=== PATIENT | male | born 1955 | race Caucasian/White ===

== ENCOUNTER → 2018-01-04 | Outpatient (CLI) | payer OTHER ==
[2018-01-04 10:02] LABS: ALBUMIN 3.9 g/dL (3.4-5.0); CALCIUM 9.2 mg/dL (8.5-10.1); CHOLESTEROL/HDL RATIO 2.4; GFR 75.2; TOTAL BILIRUBIN 0.9 mg/dL (0.2-1.0)
[2018-01-04 10:05] LABS: BASO % 1 % (0-3); EOS # 0.1 x10^3/uL (0.0-0.7); EOS % 1 % (0-3); HEMATOCRIT 48.7 % (39.0-53.0); LYMPH # 1.1 x10^3/uL (1.0-4.8); LYMPH % 14 % (24-48); MEAN CORPUSCULAR HEMOGLOBIN 31 pg (25-35); MEAN CORPUSCULAR HGB CONC 35 g/dL (31-37); MEAN CORPUSCULAR VOLUME 90 fL (79-100); MONO # 0.8 x10^3/uL (0.0-1.1); MONO % 11 % (0-9); NEUT # 5.6 x10^3uL (1.8-7.7); NEUT % 74 % (31-73); PLATELET COUNT 218 x10^3/uL (140-400); RED BLOOD COUNT 5.42 x10^6/uL (4.30-5.70); RED CELL DISTRIBUTION WIDTH 13.2 % (11.5-14.5); WHITE BLOOD COUNT 7.5 x10^3/uL (4.0-11.0)
== END | disposition home or self-care (01) ==
LOC: LAB 09:30
PROVIDERS: ATTEND Family Medicine
DX: Z12.5 Encounter for screening for malignant neoplasm of prostate (principal); E78.5 Hyperlipidemia, unspecified
CPT/HCPCS: 36415; 80053; 80061; 85025; G0103

== ENCOUNTER → 2018-12-03 | Outpatient (CLI) | payer OTHER ==
[2018-12-03 16:26] LABS: BASO # 0.1 x10^3/uL (0.0-0.2); BASO % 1 % (0-3); EOS # 0.1 x10^3/uL (0.0-0.7); EOS % 1 % (0-3); HEMATOCRIT 49.5 % (39.0-53.0); HEMOGLOBIN 16.8 g/dL (13.0-17.5); LYMPH % 23 % (24-48); MEAN CORPUSCULAR HEMOGLOBIN 30 pg (25-35); MEAN CORPUSCULAR HGB CONC 34 g/dL (31-37); MEAN CORPUSCULAR VOLUME 90 fL (79-100); MONO # 0.6 x10^3/uL (0.0-1.1); MONO % 7 % (0-9); NEUT % 68 % (31-73); PLATELET COUNT 238 x10^3/uL (140-400); RED BLOOD COUNT 5.51 x10^6/uL (4.30-5.70); RED CELL DISTRIBUTION WIDTH 13.3 % (11.5-14.5); WHITE BLOOD COUNT 8.8 x10^3/uL (4.0-11.0)
[2018-12-03 16:51] LABS: CALCIUM 9.5 mg/dL (8.5-10.1); POTASSIUM 4.4 mmol/L (3.5-5.1); TOTAL BILIRUBIN 0.8 mg/dL (0.2-1.0); TOTAL PROTEIN 7.9 g/dL (6.4-8.2)
[2018-12-03 16:52] LABS: CHOLESTEROL/HDL RATIO 3.2
== END | disposition home or self-care (01) ==
LOC: LAB 16:06
PROVIDERS: ATTEND Family Medicine
DX: Z12.5 Encounter for screening for malignant neoplasm of prostate (principal); I10 Essential (primary) hypertension; E78.5 Hyperlipidemia, unspecified
CPT/HCPCS: 36415; 80053; 80061; 85025; G0103

== ENCOUNTER → 2018-12-06 | Outpatient (CLI) | payer OTHER ==
[~2018-12-06] MED LIST: CONTRAST GIVEN. MC PRN; IOHEXOL 240 MG/ML 50ML VIAL. PO ONE; IOHEXOL 300 MG/ML 100ML VIAL. IV ONE
--- NOTE | 2018-12-06 12:03 | RAD ---
EXAM: Abdomen and pelvis CT with intravenous contrast. HISTORY: Left inguinal mass. TECHNIQUE: Computed tomographic images of the abdomen and pelvis were obtained following the administration of 75 cc Omnipaque 300 intravenous contrast. Multiplanar reformatting was performed. *One or more of the following individualized dose reduction techniques were utilized for this examination: 1. Automated exposure control. 2. Adjustment of the mA and/or kV according to patient size. 3. Use of iterative reconstruction technique. COMPARISON: None. FINDINGS: Evaluation of the lower thorax demonstrates posterior dependent atelectasis. There is no infiltrate or pleural effusion. No hepatic lesion is seen. The gallbladder, pancreas, spleen and adrenal glands are unremarkable. There is a tiny proximal duodenal diverticulum. There is mild right renal cortical lobulation, developmental or due to scarring. There is a 3 mm nonobstructing right renal stone. There is mild deformation of the bladder base due to a mildly enlarged prostate. There is no appendicitis. There is no bowel obstruction. There is a moderate left inguinal hernia containing fat and a segment of the proximal sigmoid colon. There is no evidence of bowel incarceration or mechanical obstruction. There is no lymphadenopathy. There is no suspicious osseous lesion. IMPRESSION: 1. Moderate left inguinal hernia containing fat and a segment of colon. 2. Right nephrolithiasis. Electronically signed by: Carmelina Nova MD (12/06/2018 12:00 PM) [facility]
== END | disposition home or self-care (01) ==
LOC: CT 09:24
PROVIDERS: ATTEND Family Medicine
DX: K40.90 Unilateral inguinal hernia, without obstruction or gangrene, not specified as recurrent (principal); N20.0 Calculus of kidney; K57.10 Diverticulosis of small intestine without perforation or abscess without bleeding; N40.0 Benign prostatic hyperplasia without lower urinary tract symptoms; J98.11 Atelectasis; I10 Essential (primary) hypertension
CPT/HCPCS: 74177; Q9966; Q9967

== ENCOUNTER 2019-01-14 06:09 | Day surgery (SDC) | payer OTHER ==
[~2019-01-14] VITALS: Ht 170.2 cm; Wt 96.0 kg
[~2019-01-14 06:09] MED LIST changes: +BACITRACIN 50,000 UNIT in IV NORMAL SALINE 500ML BAG 500 ML IRR ONE; -CONTRAST GIVEN. MC PRN; +FLUT9.9S NS; -IOHEXOL 240 MG/ML 50ML VIAL. PO ONE; -IOHEXOL 300 MG/ML 100ML VIAL. IV ONE; +LOSA-73 PO; +SIMV40TA18 PO
[2019-01-14] MEDS ORDERED: BUPIVACAINE-EPI 0.25%-1:200000 MPF 30 ML VIAL. INJ ONE (06:30)
[2019-01-14] MEDS ORDERED: fentaNYL PF VIAL 100 MCG/2 ML VIAL IV PRN (07:00)
[2019-01-14] MEDS ORDERED: HYDROmorphone 2 MG/ML VIAL IV PRN (07:00)
[2019-01-14] MEDS ORDERED: IV RINGERS,LACTATED 1000ML 1,000 ML IV SCH (07:00)
[2019-01-14] MEDS ORDERED: LIDOCAINE 1% PF 2 ML VIAL. ID PRN (07:00)
[2019-01-14] MEDS ORDERED: PROCHLORPERAZINE 10 MG/2 ML VIAL. IV PRN (07:00)
[2019-01-14] MEDS ORDERED: MORPHINE SULFATE 2 MG/ML VIAL. IV PRN (07:00)
[2019-01-14] MEDS ORDERED: ONDANSETRON PF 4 MG/2 ML VIAL. IV PRN (07:00)
[2019-01-14] MEDS ORDERED: SCOPOLAMINE 1.5MG PATCH. TD ONE (07:15)
[2019-01-14] MEDS ORDERED: MIDAZOLAM HCL/PF 2 MG/2 ML VIAL. ONE (07:19)
[2019-01-14] MEDS ORDERED: fentaNYL PF VIAL 250 MCG/5 ML VIAL ONE (07:20)
[2019-01-14] MEDS ORDERED: ROCURONIUM 50 MG/5 ML VIAL. ONE (07:20)
[2019-01-14] MEDS ORDERED: ONDANSETRON PF 4 MG/2 ML VIAL. ONE (08:07)
[2019-01-14] MEDS ORDERED: DEXAMETHASONE SOD PHOS 20 MG/5 ML VIAL. ONE (08:07)
[2019-01-14] MEDS ORDERED: PROPOFOL 20 ML IV ONE (08:08)
[2019-01-14] MEDS ORDERED: LIDOCAINE 2% PF 5 ML VIAL. ONE (08:08)
[2019-01-14] MEDS ORDERED: NEOSTIGMINE METHYLSULFATE 5 MG/5 ML SYRINGE. ONE (08:57)
[2019-01-14] MEDS ORDERED: GLYCOPYRROLATE 1 MG/5 ML VIAL. ONE (08:58)
--- NOTE | 2019-01-14 09:07 | DISCH ---
DISCHARGE INSTRUCTIONS Condition on Discharge Condition on Discharge: Stable Activity After Discharge Activity Instructions for Disc: Other, see below (no lifting over 20 lbs X 4 weeks) Diet after Discharge Diet after Discharge: Regular Wound Incision Care Wound/Incision Care: Other, see below (keep dressing clean and dry X 72 hours, may then remove and shower) Follow-Up Follow up with: Dr Luis in office in 2 weeks, call for appt [phone] ELISABETH LUIS MD Jan 14, 2019 09:07
[2019-01-14] MEDS ORDERED: OXYC1TAB15 PO ×2 (09:09→09:30)
[2019-01-14] MEDS ORDERED: SEVOFLURANE 61 TO 120 MINUTES. IH ONE (09:15)
--- NOTE | 2019-01-14 09:20 | PDOC4 ---
Operative Note Operative Note Operative Note: Preoperative Diagnosis: Left inguinal hernia Postoperative Diagnosis: Same Procedure: Left inguinal hernia repair with mesh Surgeon: Lencho Safety Inspector: Miroslava KAPLAN Anesthesia: Gen. EBL: 10 mL Specimen: Left cord lipoma, hernia sac to pathology Drains: None Complications: None Indication: The patient is a 63-year-old gentleman who is referred with a moderate to large left inguinal hernia. He is interested in operative repair. The risks of surgery were discussed which include bleeding, infection, recurrence, pain, numbness, urinary retention, anesthetic risk, potential need for additional surgery or procedure. He understands and would like to proceed. Description: The patient was taken to the operating room and placed supine on the operating table. Gen. anesthesia was performed. Left groin was shaved and prepped with ChloraPrep and draped in a standard surgical manner. An incision was made in the skin lines of the left groin with a scalpel. Cautery dissection was carried down to the external oblique aponeurosis. The aponeurosis was opened down to the external ring. The patient had a significant protrusion of the hernia extending into the scrotum with contents that would not readily reduce. We were able to gradually free up some of the sac attachments and mobilized the large redundant sac from the surrounding tissues. The vas deferens and other cord structures were identified and preserved. There was a moderate to large cord lipoma which was excised and sent to pathology. A Brittanie drain was used to encircle the cord structures. The large indirect hernia sac was fully freed from the surrounding tissues. Given its redundancy I did elect to resect most of it and the neck was oversewn with 2-0 Vicryl. The excised portion was sent as a specimen to pathology. The sac stump was inverted and the defect filled with an extra large Phasix mesh plug. The plug was sutured around its periphery with 2-0 Vicryl. The inguinal floor was then reinforced with a keyhole Prolene mesh patch which was also sutured into position with interrupted 2-0 Vicryl. Upon completion the mesh rested well providing full coverage of the inguinal floor and the plug was intact deep to it. He was closed over the mesh with 2-0 Vicryl. The subcutaneous tissue was closed with 3-0 Vicryl. The skin was closed with 4-0 Monocryl. The incision was infiltrated with half percent Marcaine. Steri-Strips and a sterile dressing were applied. The patient tolerated the procedure well and was sent to the recovery room in stable condition. At the end of the case all counts were correct. ELISABETH LUIS MD Jan 14, 2019 09:19
[2019-01-14] MEDS: fentaNYL PF VIAL 100 MCG/2 ML VIAL IV PRN ×2 (09:27→09:38)
[2019-01-14] MEDS ORDERED: oxyCODONE/APAP 5/325 1 TAB TABLET PO ONE ×2 (09:30)
[2019-01-14] MEDS ORDERED: ceFAZolin 2GM PREMIX 2 GM/50 ML BAG IV ONE (10:00)
[2019-01-14 10:40] VITALS: BP 156/88
--- NOTE | 2019-01-16 22:06 | PATHOLOGY ---
[facility] Accession Number: [id number] . 01 Material submitted: . PART A: inguinal area - CORD LIPOMA PART B: inguinal area - LEFT INGUINAL SAC. Modifiers: left . 01 Clinical history: . Inguinal hernia . 02 Diagnosis: A. "Cord lipoma", excision: - Mature adipose tissue consistent with lipoma. . B. "Left inguinal sac", hernia repair: - Vascularized fibroadipose connective tissue with mesothelial lining consistent with hernia sac showing reactive mesothelial hyperplasia. . (CLW:tio; 01/16/2019) MBR 01/16/2019 1042 Local . 02 Electronically signed: . Hortensia Blanton MD, Pathologist NPI- [id number] . 01 Gross description: . A. Received in formalin labeled "Erick Winn, cord lipoma," is an irregular segment of partially encapsulated, yellow-brown adipose tissue with scant attached alvarado-savlador fibromembranous tissue measuring 6.9 x 4.7 x 1.5 cm in greatest dimensions. Serial sectioning reveals yellow-brown, partially hemorrhagic cut surfaces. [employer] Grade [employer] sections are submitted in cassettes A1 and A2. . B. Received in formalin labeled "Erick Winn, left inguinal sac," is a wrinkled segment of dusky alvarado-salvador to hemorrhagic fibromembranous tissue with scant attached yellow-brown adipose tissue measuring 6.1 x 2.0 x 0.8 cm in greatest dimensions. Serial sectioning reveals an interior sac displaying a wrinkled, alvarado-salvador lining, with no lesions or nodules noted grossly. 4Th Grade Teacher sections are submitted in cassette B1. (DAC; 01/15/2019) XDC/XDC 01/15/2019 0754 Local . 02 Pathologist provided ICD-10: D17.9, K44.9 . 02 CPT . 814952, 056182 Specimen Comment: A courtesy copy of this report has been sent to [phone] Specimen Comment: [id number] Specimen Comment: Report sent to / DR CHEATHAM Performed at: 01 [facility] [address] [facility] [facility] [address], [place] [id number] MD Ward Alfred MD Phone: [phone] Performed at: 02 [facility] [address] [place], [place] [id number] MD Vivek Byers MD Phone: [phone]
== END 2019-01-14 11:55 | disposition home or self-care (01) ==
LOC: SURG 06:09
PROVIDERS: ATTEND Surgery
DX: K40.90 Unilateral inguinal hernia, without obstruction or gangrene, not specified as recurrent (principal); D17.6 Benign lipomatous neoplasm of spermatic cord; G47.30 Sleep apnea, unspecified; I10 Essential (primary) hypertension; E78.00 Pure hypercholesterolemia, unspecified; E66.9 Obesity, unspecified; Z68.33 Body mass index [BMI] 33.0-33.9, adult; Z87.442 Personal history of urinary calculi; Z98.890 Other specified postprocedural states; Z85.828 Personal history of other malignant neoplasm of skin; Z72.89 Other problems related to lifestyle
CPT/HCPCS: 49505; 88302; 88304; A7015; C1781; J0696; J1100; J2001; J2250; J2405; J2704; J2710; J3010; J3490; J7040; J7120

== ENCOUNTER 2019-12-27 07:56 | Emergency (ER) | payer OTHER ==
[~2019-12-27] VITALS: Ht 172.7 cm; Wt 93.1 kg
[~2019-12-27 07:56] MED LIST changes: -BACITRACIN 50,000 UNIT in IV NORMAL SALINE 500ML BAG 500 ML IRR ONE; +OXYC1TAB15 PO
[2019-12-27 08:37] LABS: BILIRUBIN,URINE NEGATIVE (NEG); CLARITY,URINE CLEAR; COLOR,URINE YELLOW; NITRITE,URINE NEGATIVE (NEG); PH,URINE 5.5 (<5.0-8.0); PROTEIN,URINE NEGATIVE (NEG-TRACE); UROBILINOGEN,URINE 0.2 mg/dL (0.2 mg/dL)
--- NOTE | 2019-12-27 08:43 | PHYS DOC ---
Past Medical History Past Medical History: High Cholesterol, Hypertension, Kidney Stone, Other Additional Past Medical Histor: Inguinal Hernia Past Surgical History: Other Additional Past Surgical Histo: Left Inguinal Hernia Repair Smoking Status: Never Smoker Alcohol Use: None General Adult EDM: Chief Complaint: GROIN PAIN HPI: HPI: Patient is a 64-year-old male with past medical history of hypertension who presents to the emergency room complaining of severe right lower quadrant abdominal pain that started suddenly while eating breakfast at 615 this morning. He states that he did not have any pain when he first woke up this morning. He has had pain like this previously and states that it was a kidney stone in the past. He has not had his appendix out. He had some mild nausea which is now passed. He is unsure whether or not he has had any blood in his urine. He denies any recent illnesses. Review of Systems: Review of Systems: General: Denies fever, chills, sweats, fatigue Eyes: Denies drainage, blurred vision, eye redness HENT: Denies rhinorrhea, sore throat, earache Respiratory: Denies cough, shortness of breath, wheezing Cardiac: Denies edema, palpitations, chest pain GI: Reports nausea, abdominal pain. Denies diarrhea, constipation, vomiting MSK: Denies neck pain, back pain Skin: Denies rash, jaundice Neuro: Denies headache, dizziness Psychiatric: Denies SI/HI Heart Score: Risk Factors: Risk Factors: DM, Current or recent (<one month) smoker, HTN, HLP, family hist ory of CAD, obesity. Risk Scores: Score 0 - 3: 2.5% MACE over next 6 weeks - Discharge Home Score 4 - 6: 20.3% MACE over next 6 weeks - Admit for Clinical Observation Score 7 - 10: 72.7% MACE over next 6 weeks - Early Invasive Strategies Current Medications: Current Medications Medications (Trade) Dose Ordered Sig/Jo Ann Start Time Stop Time Status Last Admin Dose Admin Morphine Sulfate (Morphine Sulfate) 5 mg 1X ONCE 12/27/19 08:30 12/27/19 08:31 UNV Ondansetron HCl (Zofran) 4 mg 1X ONCE 12/27/19 08:30 12/27/19 08:31 UNV Sodium Chloride 1,000 ml @ 1,000 mls/hr 1X ONCE 12/27/19 08:30 12/27/19 09:29 UNV Allergies: Allergies: Allergies Coded Allergies Type Severity Reaction Last Updated Verified No Known Drug Allergies 01/14/19 No Physical Exam: PE: General: Awake, alert, NA mild distress. Well Nourished, well hydrated. Cooperative HEENT: Atraumatic, EOMI, PERRL, airway patent, moist oral mucosa Neck: Supple, trachea midline Respiratory: CTA bilaterally, normal effort, no wheezing/crackles CV: RRR, no murmur, cap refill <2 GI: Soft, right lower quadrant tenderness, rebound, guarding MSK: No obvious deformities Skin: Warm, dry, intact Neuro: A&O x3, speech NL, sensory and motor grossly intact, no focal deficits Psych: Normal affect, normal mood, not suicidal or homicidal Current Patient Data: Vital Signs: Vital Signs Date Time Temp Pulse Resp B/P (MAP) Pulse Ox O2 Delivery O2 Flow Rate FiO2 12/27/19 08:01 98.3 80 18 169/80 (109) 99 Room Air 98.3 EKG: EKG: [] Radiology/Procedures: Radiology/Procedures: [] Course & Med Decision Making: Course & Med Decision Making Pertinent Labs and Imaging studies reviewed. (See chart for details) Patient is a 64 year-old male with a history of hypertension who presents to the Emergency Room complaining of abdominal pain with nausea. On exam, patient is right lower quadrant tenderness with rebound and guarding. Due to patients history, age, and exam work up will need to be done to evaluate for intra- abdominal pathology. Work up ordered includes CBC, CMP, lipase, UA, CT abdomen and pelvis. Patient's pain does not epigastric and a cardiac evaluation does not be needed for atypical pain. Ddx includes kidney stone, appendicitis, colitis, gastroenteritis, pyelonephritis. Work up was reviewed and showed patient has a kidney stone. He is feeling much better at this time. Will refer him to outpatient urology. Patient's test results and vitals while in the ED were fully reviewed and discussed with the patient. Patient is stable and at this time does not need admission to the hospital. We have discussed strict return precautions and the importance of following up with their Primary Care Physician. Patient stated understanding and was given an opportunity to ask any questions. Patient is in agreement with plan. Nena Disclaimer: Nena Disclaimer: This electronic medical record was generated, in whole or in part, using a voice recognition dictation system. Departure Departure Impression: Primary Impression: Kidney stone Disposition: 01 DC HOME SELF CARE/HOMELESS Condition: STABLE Referrals: Figueroa CHEATHAM MD (PCP) Patient Instructions: Kidney Stones Additional Instructions: [facility] Ondansetron Hcl (ZOFRAN) 4 Mg Tablet 1 TAB PO PRN Q6-8HRS for nausea, #12 TAB Prov: NENO CARPENTER MD 12/27/19 Oxycodone/Apap 5-325 (PERCOCET 5-325 MG TABLET ) 1 Each Tablet 1 TAB PO PRN Q6HRS PRN for PAIN, #10 TAB 0 Refills Prov: NENO CARPENTER MD 12/27/19 NENO CARPENTER MD Dec 27, 2019 08:43
[2019-12-27 08:50] LABS: BASO # 0.1 x10^3/uL (0.0-0.2); BASO % 1 % (0-3); EOS # 0.1 x10^3/uL (0.0-0.7); EOS % 1 % (0-3); HEMATOCRIT 47.2 % (39.0-53.0); HEMOGLOBIN 16.4 g/dL (13.0-17.5); LYMPH # 1.3 x10^3/uL (1.0-4.8); LYMPH % 14 % (24-48); MEAN CORPUSCULAR HEMOGLOBIN 31 pg (25-35); MEAN CORPUSCULAR HGB CONC 35 g/dL (31-37); MEAN CORPUSCULAR VOLUME 88 fL (79-100); MONO # 0.6 x10^3/uL (0.0-1.1); MONO % 7 % (0-9); NEUT # 7.4 x10^3/uL (1.8-7.7); NEUT % 78 % (31-73); PLATELET COUNT 232 x10^3/uL (140-400); RED BLOOD COUNT 5.35 x10^6/uL (4.30-5.70); RED CELL DISTRIBUTION WIDTH 13.1 % (11.5-14.5); WHITE BLOOD COUNT 9.5 x10^3/uL (4.0-11.0)
[2019-12-27 08:52] LABS: CREATININE 1.2 mg/dL (0.7-1.3); GFR 60.6; POTASSIUM 3.9 mmol/L (3.5-5.1)
[2019-12-27 08:53] LABS: BACTERIA,URINE FEW /HPF (0-FEW); WBC,URINE OCC /HPF (0-4)
[2019-12-27 08:57] LABS: ALBUMIN 3.7 g/dL (3.4-5.0); TOTAL BILIRUBIN 0.7 mg/dL (0.2-1.0); TOTAL PROTEIN 7.4 g/dL (6.4-8.2)
[2019-12-27] MEDS ORDERED: IV NORMAL SALINE 1000ML BAG 1,000 ML IV ONE ×2 (09:00→11:15)
[2019-12-27] MEDS ORDERED: ONDANSETRON PF 4 MG/2 ML VIAL. IVP ONE (09:00)
[2019-12-27] MEDS ORDERED: MORPHINE SULFATE 10 MG/ML VIAL. IV ONE ×2 (09:00→10:00)
[2019-12-27] MEDS ORDERED: IOHEXOL 300 MG/ML 100ML VIAL. IV ONE (09:15)
[2019-12-27] MEDS ORDERED: IOHEXOL 240 MG/ML 50ML VIAL. PO ONE (09:15)
[2019-12-27] MEDS ORDERED: CONTRAST GIVEN. MC PRN (09:30)
--- NOTE | 2019-12-27 10:26 | RAD ---
EXAM: CT Abdomen and Pelvis without IV contrast INDICATION: Reason: RLQ abd pain / Spl. Instructions: OMNI 300 INJ 75 MLS, PO OMNI 240 30 MLS / History: TECHNIQUE: Multi-detector row CT images were acquired from the lung bases through the abdomen and pelvis without the use of IV contrast. Sagittal and coronal images were acquired from the transaxial data. All CT scans performed at this facility utilize dose optimization techniques as appropriate to the exam, including the following: Automated exposure control and adjustment of the mA and/or KV according to patient size (this includes techniques or standardized protocols for targeted exams where dose is indication/reason for exam). ORAL CONTRAST: Administered COMPARISON: Contrast-enhanced abdomen pelvis CT of 12/06/2018. FINDINGS: The absence of IV contrast limits evaluation of soft tissue pathology. LOWER CHEST: Unremarkable LIVER: Unremarkable BILIARY SYSTEM: Gallbladder contains layering densities near the neck compatible with small gallstones or sludge.. Bile ducts are not dilated. PANCREAS: Unremarkable SPLEEN: Unremarkable ADRENALS: Unremarkable KIDNEYS & URETERS: Distal right ureteral 4.6 mm stone (image 78 of series 2) is associated with mild right hydroureter, hydronephrosis and a delayed right nephrogram with mild right perirenal soft tissue stranding. BLADDER: Unremarkable REPRODUCTIVE ORGANS: Mild prostatic enlargement measuring 6.4 cm transverse diameter. GASTROINTESTINAL: The stomach is mildly distended with oral contrast and gas. The small bowel and colon are unremarkable. The appendix is normal. MESENTERY/PERITONEUM/RETROPERITONEUM: Tubular soft tissue density at the left inguinal canal is suggestive of previous hernia repair. Otherwise unremarkable. VASCULAR: Unremarkable LYMPH NODES: No adenopathy OSSEOUS & SOFT TISSUES: Unremarkable IMPRESSION: Distal right ureteral obstruction from a 4.6 mm stone. Electronically signed by: Frances Ferreira MD (12/27/2019 10:23 AM) [id number]
[2019-12-27] MEDS ORDERED: KETOROLAC 30 MG/ML VIAL. ONE (10:42)
[2019-12-27] MEDS ORDERED: KETOROLAC 30 MG/ML VIAL. IVP ONE (10:45)
[2019-12-27] MEDS ORDERED: oxyCODONE/APAP 5/325 1 TAB TABLET PO ONE (13:15)
[2019-12-27] MEDS ORDERED: OXYC1TAB15 PO (13:58)
[2019-12-27] MEDS ORDERED: ONDA4TAB7 PO (13:58)
[2019-12-27 14:07] VITALS: BP 129/65
== END 2019-12-27 14:45 | disposition home or self-care (01) ==
LOC: ER 07:56
DX: N20.0 Calculus of kidney (principal); R10.31 Right lower quadrant pain; R11.0 Nausea; R31.9 Hematuria, unspecified; I10 Essential (primary) hypertension; E78.00 Pure hypercholesterolemia, unspecified; Z98.890 Other specified postprocedural states
CPT/HCPCS: 36415; 74177; 80053; 81001; 83690; 85025; 96361; 96374; 96375; 96376; 99285; J1885; J2270; J2405; J7030; Q9966; Q9967

== ENCOUNTER → 2020-01-02 | Outpatient (CLI) | payer OTHER ==
[2019-12-27 14:07] VITALS: BP 129/65
[~2020-01-02] MED LIST changes: +ONDA4TAB7 PO
[2020-01-02 07:25] LABS: BASO % 1 % (0-3); EOS # 0.2 x10^3/uL (0.0-0.7); EOS % 3 % (0-3); HEMATOCRIT 46.5 % (39.0-53.0); HEMOGLOBIN 16.1 g/dL (13.0-17.5); LYMPH # 1.4 x10^3/uL (1.0-4.8); LYMPH % 23 % (24-48); MEAN CORPUSCULAR HEMOGLOBIN 31 pg (25-35); MEAN CORPUSCULAR HGB CONC 35 g/dL (31-37); MEAN CORPUSCULAR VOLUME 89 fL (79-100); MONO # 0.6 x10^3/uL (0.0-1.1); MONO % 10 % (0-9); NEUT # 3.9 x10^3/uL (1.8-7.7); NEUT % 64 % (31-73); PLATELET COUNT 225 x10^3/uL (140-400); RED BLOOD COUNT 5.25 x10^6/uL (4.30-5.70); RED CELL DISTRIBUTION WIDTH 13.1 % (11.5-14.5); WHITE BLOOD COUNT 6.1 x10^3/uL (4.0-11.0)
[2020-01-02 07:37] LABS: ALBUMIN 3.5 g/dL (3.4-5.0); ALBUMIN/GLOBULIN RATIO 0.9 (1.0-1.7); CALCIUM 8.7 mg/dL (8.5-10.1); CREATININE 0.9 mg/dL (0.7-1.3); GFR 84.4; TOTAL BILIRUBIN 0.7 mg/dL (0.2-1.0); TOTAL PROTEIN 7.5 g/dL (6.4-8.2)
== END ==
LOC: LAB 06:46
PROVIDERS: ATTEND Family Medicine
DX: Z12.5 Encounter for screening for malignant neoplasm of prostate (principal); E78.5 Hyperlipidemia, unspecified; I10 Essential (primary) hypertension
CPT/HCPCS: 36415; 80053; 80061; 85025; G0103

== ENCOUNTER → 2021-01-19 | Outpatient (CLI) | payer OTHER ==
[2021-01-19 09:13] LABS: BASO # 0.1 x10^3/uL (0.0-0.2); BASO % 1 % (0-3); EOS # 0.1 x10^3/uL (0.0-0.7); EOS % 1 % (0-3); HEMATOCRIT 47.1 % (39.0-53.0); LYMPH # 1.4 x10^3/uL (1.0-4.8); LYMPH % 22 % (24-48); MEAN CORPUSCULAR HEMOGLOBIN 31 pg (25-35); MEAN CORPUSCULAR HGB CONC 34 g/dL (31-37); MEAN CORPUSCULAR VOLUME 90 fL (79-100); MONO # 0.6 x10^3/uL (0.0-1.1); MONO % 9 % (0-9); NEUT # 4.3 x10^3/uL (1.8-7.7); NEUT % 67 % (31-73); PLATELET COUNT 229 x10^3/uL (140-400); RED BLOOD COUNT 5.25 x10^6/uL (4.30-5.70); RED CELL DISTRIBUTION WIDTH 13.4 % (11.5-14.5); WHITE BLOOD COUNT 6.4 x10^3/uL (4.0-11.0)
[2021-01-19 09:28] LABS: ALBUMIN 3.6 g/dL (3.4-5.0); ALBUMIN/GLOBULIN RATIO 0.9 (1.0-1.7); CALCIUM 8.6 mg/dL (8.5-10.1); CREATININE 0.9 mg/dL (0.7-1.3); GFR 84.2; POTASSIUM 4.6 mmol/L (3.5-5.1); TOTAL BILIRUBIN 0.7 mg/dL (0.2-1.0); TOTAL PROTEIN 7.6 g/dL (6.4-8.2)
[2021-01-19 09:29] LABS: CHOLESTEROL/HDL RATIO 3.4
== END ==
LOC: LAB 08:42
PROVIDERS: ATTEND Family Medicine
DX: Z12.5 Encounter for screening for malignant neoplasm of prostate (principal); I10 Essential (primary) hypertension; E78.5 Hyperlipidemia, unspecified
CPT/HCPCS: 36415; 80053; 80061; 83615; 84153; 85025; G0103

== ENCOUNTER → 2021-04-07 | Day surgery (SDC) | payer OTHER ==
[~2021-04-07] VITALS: Ht 175.3 cm; Wt 96.8 kg
[~2021-04-07] MED LIST changes: +HYDROmorphone 2 MG/ML INJ. IVP PRN; +IV RINGERS,LACTATED 1000ML 1,000 ML IV SCH; +LIDOCAINE 2% PF 5 ML VIAL. ONE; +MORPHINE SULFATE 2 MG/ML INJ. IVP PRN; +PROCHLORPERAZINE 10 MG/2 ML VIAL. IVP PRN; +PROPOFOL 10 MG/ML (20ML) VIAL. IV ONE; +ePHEDrine PF IN SALINE 50 MG/10 ML SYRINGE. IV ONE; +fentaNYL PF VIAL 100 MCG/2 ML VIAL IVP PRN
[2021-04-07 06:35] VITALS: BP 139/76
--- NOTE | 2021-04-07 07:40 | CONS ---
DATE OF CONSULTATION: 04/07/2021 UPDATED HISTORY AND PHYSICAL REFERRING PHYSICIAN: Dr. Neto Green. REASON FOR CONSULTATION: Colorectal screening. HISTORY OF PRESENT ILLNESS: A 65-year-old male with past medical history significant for hypertension, hyperlipidemia, seen for screening colon exam. Bowel habits are regular without diarrhea or constipation. Family history is negative for colon cancer. Weight and appetite are stable. He has had no bleeding. He is otherwise without additional complaints. PAST MEDICAL HISTORY: Hypertension, hyperlipidemia. ALLERGIES: None. MEDICATIONS: Include Flonase, losartan and simvastatin. FAMILY AND SOCIAL HISTORY: Significant for stomach cancer with his mother, [place] with mother, hypertension with mother and father. SOCIAL HISTORY: Nonsmoker, remote social drinker. PAST SURGICAL HISTORY: Significant for hernia repair. REVIEW OF SYSTEMS: Per records. PHYSICAL EXAMINATION: GENERAL: Reveals a well-nourished, well-developed male who is alert, cooperative, in no acute distress. VITAL SIGNS: Temperature 97.5, pulse 74, respiratory rate 20. LUNGS: Clear. CARDIOVASCULAR: Reveals an S1, S2, without S3, S4 or appreciable murmur. ABDOMEN: Reveals a soft abdomen, normal bowel sounds, without appreciable hepatosplenomegaly. EXTREMITIES: Reveals no cyanosis, clubbing or edema. IMPRESSION: Colorectal screening is warranted at this time. Risks and benefits of procedure including risk of hemorrhage and perforation with operation were discussed with the patient previously and is willing to proceed. NICK DR: Mark Anthony TID: [id number]
[2021-04-07 08:00] VITALS: BP 116/75
--- NOTE | 2021-04-08 14:11 | PATHOLOGY ---
[facility] Accession Number: [id number] . 01 Material submitted: . rectum - RECTAL MASS BIOPSY DISTAL . 01 Clinical history: . SCREENING COLON . 02 Diagnosis: Colorectal biopsies, distal rectal mass: - Tubulovillous adenoma. LBQ 04/08/2021 1154 Local . 02 Comment: Sections of the distal rectal mass biopsy reveal multiple segments of tubulovillous adenoma. There is no high grade dysplasia or evidence of malignancy within this biopsy. Correlate clinically. (JPM/db; 04/08/2021) . 02 Electronically signed: . Vivek Byers MD, Pathologist NPI- [id number] . 01 Gross description: . The specimen is received in formalin, labeled "Erick Winn, rectal mass BX (distal)". Received are multiple segments of pale salvador tissue ranging in size from 0.2-0.3 cm in maximum dimension. The specimen is entirely submitted in cassette A1. ([facility]; 04/07/2021) NRI/NRI 04/07/2021 1842 Local . 02 Pathologist provided ICD-10: D12.8 . 02 CPT . 203536 Specimen Comment: A courtesy copy of this report has been sent to [phone] Specimen Comment: [id number] Specimen Comment: Report sent to / DR CHEATHAM Specimen Comment: A duplicate report has been generated due to demographic updates. Performed at: 01 [facility] [address] [facility] [facility] [address], [place] [id number] MD Gadiel Barrera MD Phone: [phone] Performed at: 02 [facility] [address] [place], [place] [id number] MD Vivek Byers MD Phone: [phone]
== END | disposition home or self-care (01) ==
LOC: ENDOS 06:11
PROVIDERS: ATTEND Internal Medicine Gastroenterology
DX: Z12.11 Encounter for screening for malignant neoplasm of colon (principal); K64.0 First degree hemorrhoids; K57.30 Diverticulosis of large intestine without perforation or abscess without bleeding; D12.8 Benign neoplasm of rectum; K63.89 Other specified diseases of intestine; I10 Essential (primary) hypertension; E78.00 Pure hypercholesterolemia, unspecified; G47.30 Sleep apnea, unspecified; Z85.828 Personal history of other malignant neoplasm of skin; Z79.899 Other long term (current) drug therapy; Z98.890 Other specified postprocedural states; Z80.0 Family history of malignant neoplasm of digestive organs; Z82.49 Family history of ischemic heart disease and other diseases of the circulatory system
CPT/HCPCS: 45380; J2704

== ENCOUNTER 2021-06-23 09:27 | Day surgery (SDC) | payer OTHER ==
[~2021-06-23] VITALS: Ht 170.2 cm; Wt 100.5 kg
[~2021-06-23 09:27] MED LIST changes: -LIDOCAINE 2% PF 5 ML VIAL. ONE; -PROPOFOL 10 MG/ML (20ML) VIAL. IV ONE; -ePHEDrine PF IN SALINE 50 MG/10 ML SYRINGE. IV ONE
[2021-06-23] MEDS ORDERED: PROPOFOL 10 MG/ML (20ML) VIAL. IV ONE ×2 (10:27→12:21)
[2021-06-23] MEDS ORDERED: ONDANSETRON PF 4 MG/2 ML VIAL. ONE (10:28)
[2021-06-23] MEDS ORDERED: fentaNYL PF VIAL 100 MCG/2 ML VIAL ONE (10:28)
[2021-06-23] MEDS ORDERED: LIDOCAINE 1% PF 5 ML VIAL. ONE (10:28)
[2021-06-23] MEDS ORDERED: DEXAMETHASONE SOD PHOS 4 MG/ML VIAL ONE (10:29)
[2021-06-23] MEDS ORDERED: GELATIN SPONGE SIZE 100. ONE (11:25)
[2021-06-23] MEDS ORDERED: BUPIVACAINE-EPI 0.5% 30 ML VIAL KIT. ONE (11:25)
[2021-06-23] MEDS ORDERED: PHENYLEPHRINE in 0.9% NACL PF 1 MG/10 ML SYRINGE. IV ONE (11:59)
[2021-06-23] MEDS ORDERED: ROCURONIUM 50 MG/5 ML VIAL. ONE (12:14)
--- NOTE | 2021-06-23 12:48 | PDOC4 ---
Operative Note Operative Note Operative Note: Preoperative Diagnosis: Rectal tubulovillous adenoma Postoperative Diagnosis: Same Procedure: Transanal excision of rectal tubulovillous adenoma Surgeon: Lencho Composition Molder: Chilo Enrique, MS 4 Anesthesia: General EBL: 15 mL Specimen: Rectal adenoma to pathology, 3 cm Drains: None Complications: None Indication: The patient is a 66-year-old male who is referred due to a rectal polypoid lesion identified with colonoscopy. A biopsy showed a tubulovillous adenoma and the lesion was too large to be removed endoscopically. He was referred for transanal excision. The risks of surgery were discussed with the patient which include bleeding, infection, incontinence, pain, anesthetic risk, potential need for additional surgery procedure. He understands and would like to proceed. Description: The patient was taken the operating and placed supine on the operating table. General anesthesia was performed. He was then placed in prone jackknife. Perianal skin was prepped with Betadine and draped in a standard surgical manner. In prone positioning the adenoma was readily identified along the right lateral border of the distal rectum. It appeared villous in nature and bled with minimal manipulation. The lesion was excised with the assistance of the LigaSure device. Along the base of the lesion the device was applied sequentially the lesion from the remainder of the rectum. The mass was fully excised and measured over 3 cm in length. No other abnormalities were identified. Hemostasis was good and a sterile ABD pad was applied. The patient tolerated the procedure well and was sent to the recovery room in stable condition. At the end of the case all counts were correct. ELISABETH LUIS MD Jun 23, 2021 12:48
[2021-06-23] MEDS ORDERED: HYDR-2761 PO (12:50)
--- NOTE | 2021-06-23 12:51 | DISCH ---
DISCHARGE INSTRUCTIONS Condition on Discharge Condition on Discharge: Stable Activity After Discharge Activity Instructions for Disc: Activity as tolerated Diet after Discharge Diet after Discharge: Regular Follow-Up Follow up with: Dr Luis in office in 2 weeks, call for appt [phone] ELISABETH LUIS MD Jun 23, 2021 12:51
[2021-06-23] MEDS ORDERED: HYDROcodone/APAP 5/325MG 1 TAB TABLET PO ONE (13:30)
[2021-06-23 14:00] VITALS: BP 108/65
--- NOTE | 2021-06-28 15:11 | PATHOLOGY ---
[facility] Accession Number: [id number] . 01 Material submitted: . rectum - RECTAL ADENOMA . 01 Clinical history: . RECTAL POLYP . 02 Diagnosis: Segment of anorectal mucosa and submucosa, transanal excision rectal polyp: - Tubulovillous adenoma, predominantly tubular. (M:[facility]; 06/28/2021) [facility] 06/28/2021 0846 Local . 02 Comment: There is no high-grade dysplasia or evidence of malignancy. (JPM:[facility]; 06/28/2021) . . 02 Electronically signed: . Vivek Byers MD, Pathologist NPI- [id number] . 01 Gross description: . Received in formalin labeled "Erick Winn, rectal adenoma" is an unoriented excision of salvador-brown possible bowel mucosa and underlying soft tissue measuring 4.3 x 1.9 x 1.0 cm. The mucosal surface displays a raised salvador-brown nodular lesion measuring 4.0 x 1.2 x 0.6 cm. The margin is inked entirely black. The lesion is located less than 0.1 cm to the closest inked mucosal margins. The specimen is sectioned perpendicular to the long axis to reveal that the lesion is located 0.3 cm from the closest approach to the deep margin. The specimen is entirely submitted as follows: A1 perpendicular sections of first slice A2-A4 middle of specimen A5 perpendicular sections of last slice ([facility]; 06/24/2021) [facility] 06/24/2021 1306 Local . 02 Pathologist provided ICD-10: D12.8 . 02 CPT . 440859 Specimen Comment: A courtesy copy of this report has been sent to [phone] Specimen Comment: Report sent to Performed at: 01 [facility] [address], [place], [place] [id number] MD Gadiel Barrera MD Phone: [phone] Performed at: 02 [facility] [address] [place], [place] [id number] MD Vivek Byers MD Phone: [phone]
== END 2021-06-23 14:19 | disposition home or self-care (01) ==
LOC: SURG 09:27
PROVIDERS: ATTEND Surgery
DX: D12.8 Benign neoplasm of rectum (principal); I10 Essential (primary) hypertension; E78.00 Pure hypercholesterolemia, unspecified; G47.30 Sleep apnea, unspecified; Z85.828 Personal history of other malignant neoplasm of skin; Z79.899 Other long term (current) drug therapy; Z98.890 Other specified postprocedural states
CPT/HCPCS: 45171; A4930; A6253; J0690; J1100; J2370; J2405; J2704; J3010; J3490; 88305